=== PATIENT | female | born 1950 | race Two or more races ===

== ENCOUNTER 2022-04-01 05:50 | Day surgery (SDC) | payer OTHER ==
[~2022-04-01] VITALS: Ht 160 cm; Wt 79.8 kg
[~2022-04-01 05:50] MED LIST: LOSARTAN POTASS50 MG PO; NEURONTIN300 MG PO; NORVASC10 MG PO; SYNTHROID50 MCG PO; TEGRETOL XR200 MG PO; [UNRECOGNIZED DRUG - OTHER]
== END 2022-04-01 15:25 | disposition home or self-care (01) ==
LOC: CIR.AMB 05:50
PROVIDERS: ATTEND Surgery
DX: D05.12 Intraductal carcinoma in situ of left breast (principal); Z20.822 Contact with and (suspected) exposure to COVID-19; Z88.8 Allergy status to other drugs, medicaments and biological substances; I10 Essential (primary) hypertension; E03.9 Hypothyroidism, unspecified; Z99.89 Dependence on other enabling machines and devices; G47.33 Obstructive sleep apnea (adult) (pediatric); I87.2 Venous insufficiency (chronic) (peripheral); Z86.16 Personal history of COVID-19; J45.909 Unspecified asthma, uncomplicated
CPT/HCPCS: 19301; 19281; L8699

== ENCOUNTER 2022-12-20 11:07 | Outpatient (CLI) | payer OTHER | END 2022-12-20 11:12 | disposition home or self-care (01) | LOC: MAMO-SONO 11:07 | PROVIDERS: ATTEND Surgery | DX: D05.12 Intraductal carcinoma in situ of left breast (principal); N60.11 Diffuse cystic mastopathy of right breast; N60.12 Diffuse cystic mastopathy of left breast ==

== ENCOUNTER 2024-12-25 10:44 | Outpatient (CLI) | payer OTHER | END 2024-12-25 10:52 | disposition home or self-care (01) | LOC: MAMO-SONO 10:44 | PROVIDERS: ATTEND Surgery | DX: N60.11 Diffuse cystic mastopathy of right breast (principal); N60.12 Diffuse cystic mastopathy of left breast; Z12.31 Encounter for screening mammogram for malignant neoplasm of breast ==